=== PATIENT | female | born 1960 | race Caucasian/White ===

== ENCOUNTER → 2017-11-26 | Day surgery (SDC) | payer OTHER ==
--- NOTE | 2017-11-26 21:56 | OP ---
DATE OF OPERATION: 11/26/2017 PREOPERATIVE DIAGNOSIS: Abnormal right mammography. POSTOPERATIVE DIAGNOSIS: Abnormal right mammography. PROCEDURE: Attempted right stereotactic needle biopsy. SURGEON: Rina Martin MD The patient presenting with a screening mammography that noted fine microcalcifications clustering in the upper outer right breast. Recommendation was a needle biopsy. I brought her to [facility] [place], laid prone on the lorad table, used many different angles, was unable to see the fine microcalcifications, therefore, no biopsy was performed today. My recommendation would be a wire-localized excision, as I am unable to see this with the stereotactic technology. Using [place] translation, the procedure of a right breast x-ray wire-localized excision under local and IV sedation was discussed and all her questions were answered. I will make the necessary arrangements. RINA MARTIN M.D. VIVIAN/[id number] MTDD
== END | disposition home or self-care (01) ==
LOC: FMAMMOTONE 10:21
PROVIDERS: ATTEND Surgery
PROC: 0HBT3ZX Excision of Right Breast, Percutaneous Approach, Diagnostic (ICD-10-PCS; principal; 2017-11-26)
DX: R92.8 Other abnormal and inconclusive findings on diagnostic imaging of breast (principal); Z53.8 Procedure and treatment not carried out for other reasons
CPT/HCPCS: 19081

== ENCOUNTER 2018-01-23 06:58 | Day surgery (SDC) | payer OTHER ==
[2018-01-22 12:44] VITALS: BMI 28.3
[2018-01-23 11:30] VITALS: TEMP 98.1
[2018-01-23 21:05] VITALS: BP 147/86; PULSE 65
== END 2018-01-23 15:00 | disposition home or self-care (01) ==
LOC: JASU-SURG 06:58
PROVIDERS: ATTEND Surgery
PROC: 0HBT0ZX Excision of Right Breast, Open Approach, Diagnostic (ICD-10-PCS; principal; 2018-01-23)
DX: N60.11 Diffuse cystic mastopathy of right breast (principal); N60.81 Other benign mammary dysplasias of right breast; N60.91 Unspecified benign mammary dysplasia of right breast
CPT/HCPCS: 19281; 71045-TC-FY; 88307-TC; 94760

== ENCOUNTER 2021-11-12 13:26 | Emergency (ER) | payer OTHER ==
[2021-11-12 13:36] VITALS: BP 102/49; PULSE 74; TEMP 97.6; BMI 26.4
[2021-11-12] MEDS ORDERED: IBUPROFEN 600 MG TABLET (FP) PO ONE ×2 (14:21→14:24)
== END 2021-11-12 14:36 | disposition home or self-care (01) ==
LOC: JER 13:26 → JERFT 13:26
DX: M25.571 Pain in right ankle and joints of right foot (principal); W01.0XXA Fall on same level from slipping, tripping and stumbling without subsequent striking against object, initial encounter
CPT/HCPCS: 73610-TC-RT-FY; 73630-TC-RT-FY; 99283-25